=== PATIENT | female | born 1985 | race Caucasian/White ===

== ENCOUNTER 2019-12-22 16:56 | Emergency (ER) | payer BC, OTHER ==
[~2019-12-22] VITALS: Ht 170.1 cm; Wt 166.4 kg
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
[2019-12-22 17:17] LABS: HEMATOCRIT 37 % (35-52); HEMOGLOBIN 11.5 G/DL (11.5-16.0); MEAN CORPUSCULAR HEMOGLOBIN 23 PG (25-34); MEAN CORPUSCULAR HGB CONC 31 G/DL (32-36); MEAN CORPUSCULAR VOLUME 75 FL (80-99); MEAN PLATELET VOLUME 9.3 FL (7.4-10.4); PLATELET COUNT 344 10^3/uL (130-400); RED CELL DISTRIBUTION WIDTH 17.2 % (10.0-14.5); WHITE BLOOD COUNT 8.5 10^3/uL (4.3-11.0)
[2019-12-22 17:18] LABS: BASOPHILS % (AUTO) 0 % (0-10); EOSINOPHILS # (AUTO) 0.1 10^3/uL (0.0-0.3); EOSINOPHILS % (AUTO) 1 % (0-10); LYMPHOCYTES # (AUTO) 2.5 X 10^3 (1.0-4.0); LYMPHOCYTES % (AUTO) 29 % (12-44); MONOCYTES # (AUTO) 0.5 X 10^3 (0.0-1.0); MONOCYTES % (AUTO) 5 % (0-12); NEUTROPHILS # (AUTO) 5.4 X 10^3 (1.8-7.8); NEUTROPHILS % (AUTO) 64 % (42-75)
--- NOTE | 2019-12-22 17:28 | Diagnostic Imaging Report ---
INDICATION: Chest pain and dizziness. FINDINGS: Single view of the chest shows normal heart size and vascularity. The lungs are clear. There is no effusion or pneumothorax. There is no bony abnormality. IMPRESSION: Normal chest. Dictated by: Dictated on workstation # [id number]
[2019-12-22 17:33] LABS: BILIRUBIN,URINE NEGATIVE (NEGATIVE); CLARITY,URINE CLEAR; COLOR,URINE PALE YELLOW; GLUCOSE, URINE (UA) 1+ (NEGATIVE); KETONES,URINE NEGATIVE (NEGATIVE); LEUKOCYTE ESTERASE ,URINE NEGATIVE (NEGATIVE); NITRITE,URINE NEGATIVE (NEGATIVE); PH,URINE 7.5 (5-9); PROTEIN,URINE NEGATIVE (NEGATIVE)
[2019-12-22 17:34] LABS: BACTERIA,URINE FEW /HPF; WBC,URINE 0-2 /HPF
[2019-12-22 17:38] LABS: AMPHETAMINE SCREEN, URINE NEGATIVE (NEGATIVE); BARBITURATE SCREEN URINE NEGATIVE (NEGATIVE); BENZODIAZEPINES SCREEN URINE NEGATIVE (NEGATIVE); CANNABINOID SCREEN, URINE NEGATIVE (NEGATIVE); COCAINE SCREEN URINE NEGATIVE (NEGATIVE); METHADONE STAT NEGATIVE (NEGATIVE); METHAMPHETAMINE SCREEN URINE S NEGATIVE (NEGATIVE); OPIATE SCREEN URINE NEGATIVE (NEGATIVE); OXYCODONE STAT NEGATIVE (NEGATIVE); PROPOXYPHENE STAT NEGATIVE (NEGATIVE); TRICYCLIC ANTIDEPRESSANTS SCRE NEGATIVE (NEGATIVE)
[2019-12-22] MEDS ORDERED: Claritin (17:46)
[2019-12-22] MEDS ORDERED: PRAM0.257 (17:46)
[2019-12-22] MEDS ORDERED: Probiotic (17:46)
[2019-12-22] MEDS ORDERED: TOPI50TA13 (17:46)
[2019-12-22] MEDS ORDERED: ESCI20TA45 (17:46)
[2019-12-22] MEDS ORDERED: Cinnamon (17:46)
[2019-12-22] MEDS ORDERED: OMEP20CA18 (17:46)
[2019-12-22] MEDS ORDERED: BUPROPION (17:46)
[2019-12-22] MEDS ORDERED: ROPI2TAB6 (17:46)
[2019-12-22 17:53] LABS: ALANINE AMINOTRANSFERASE 15 U/L (0-55); ALKALINE PHOSPHATASE 97 U/L (40-136); BILIRUBIN,TOTAL 0.2 MG/DL (0.1-1.0); BUN/CREATININE RATIO 19; CALCIUM 8.9 MG/DL (8.5-10.1); CARBON DIOXIDE 17 MMOL/L (21-32); CHLORIDE 101 MMOL/L (98-107); CREATININE SERUM 0.67 MG/DL (0.60-1.30); GFR ESTIMATED > 60; GLUCOSE 203 MG/DL (70-105); POTASSIUM 4.1 MMOL/L (3.6-5.0); SODIUM 136 MMOL/L (135-145)
[2019-12-22 17:54] LABS: ALBUMIN 3.5 GM/DL (3.2-4.5); TOTAL PROTEIN 6.8 GM/DL (6.4-8.2)
[2019-12-22 18:20] LABS: FIBRIN DEGRADATION PRODUCTS 0.29 UG/ML (0.00-0.49); INR 0.9 (0.8-1.4); PROTHROMBIN TIME PATIENT 12.5 SEC (12.2-14.7)
[2019-12-22 18:27] VITALS: BP 129/79
--- OUTSIDE RECORDS SUMMARY | 2019-12-22 22:12 | XMS REPORT | Continuity of Care Document ---
Author Organization Unknown Address Unknown Phone Unavailable Allergies There is no data. Medications There is no data. Problems There is no data. Procedures There is no data. Results Test Result Range CULTURE, URINE - 11/09/19 15:49 CULTURE, URINE, ROUTINE SEE NOTE NRG Encounters ACCT No. Visit Date/Time Discharge Status Pt. Type Provider Facility Loc./Unit Complaint [id number] 11/28/2019 11:10:00 11/28/2019 23:59: 59 [facility] Outpatient Ata Cook [facility] IN [facility] [id number] 11/09/2019 14:50:00 Document Registration
== END 2019-12-22 18:27 | disposition home or self-care (01) ==
LOC: ER FS 16:59
DX: F41.9 Anxiety disorder, unspecified (principal); R07.89 Other chest pain; Z88.1 Allergy status to other antibiotic agents; Z88.8 Allergy status to other drugs, medicaments and biological substances
CPT/HCPCS: 36415; 71045; 80053; 80306; 81000; 83880; 84484; 85025; 85379; 85610; 93005

== ENCOUNTER 2020-03-16 16:20 | Emergency (ER) | payer BC ==
[~2020-03-16] VITALS: Ht 170.1 cm; Wt 168.6 kg
[~2020-03-16 16:20] MED LIST: BUPROPION; Cinnamon; Claritin; ESCI20TA45; OMEP20CA18; PRAM0.257; Probiotic; ROPI2TAB6; TOPI50TA13
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
[2020-03-16 16:53] LABS: HEMATOCRIT 39 % (35-52); HEMOGLOBIN 11.8 G/DL (11.5-16.0); MEAN CORPUSCULAR HEMOGLOBIN 23 PG (25-34); MEAN CORPUSCULAR VOLUME 76 FL (80-99); WHITE BLOOD COUNT 10.7 10^3/uL (4.3-11.0)
[2020-03-16 16:54] LABS: BASOPHILS % (AUTO) 0 % (0-10); EOSINOPHILS # (AUTO) 0.1 10^3/uL (0.0-0.3); EOSINOPHILS % (AUTO) 1 % (0-10); LYMPHOCYTES # (AUTO) 2.7 X 10^3 (1.0-4.0); LYMPHOCYTES % (AUTO) 26 % (12-44); MEAN CORPUSCULAR HGB CONC 31 G/DL (32-36); MEAN PLATELET VOLUME 9.5 FL (7.4-10.4); MONOCYTES # (AUTO) 0.8 X 10^3 (0.0-1.0); MONOCYTES % (AUTO) 7 % (0-12); NEUTROPHILS % (AUTO) 66 % (42-75); PLATELET COUNT 383 10^3/uL (130-400)
[2020-03-16] MEDS ORDERED: meTOprolol 5 MG/5 ML (LOPRESSOR) VIAL IV STA (17:00)
--- NOTE | 2020-03-16 17:00 | NUR ---
Call to patient's mother, Holli, that transported patient to ED in [facility]. Mother asked by staff to convey the reason of patient to ED as she is not offering any history and wanting to be very vague. Pt states in soft slow hesitance with many pauses, "I am not feeling well." With more questions to prod pt to be more specific she reports, "My blood sugars are not being controlled with all the new meds." Mother states, "She is having reactions to all new meds." Reactions were defined as diarrhea and stomach cramping. Pt does not c/o of any pain, SOA, CP, but kepts stating "Just need to rest." The mother states she stays out back in a cabin on their property and currently had her son today which is shared in joint custody while going thru a divorce. The mother states she checked her BP at lunch time 188/85 with pulse >100. A recheck was 195/93 with pulse >100. Pt with known history of anxiety and depression.
[2020-03-16 17:13] LABS: PROTHROMBIN TIME PATIENT 13.2 SEC (12.2-14.7)
[2020-03-16 17:17] LABS: BILIRUBIN,URINE NEGATIVE (NEGATIVE); CLARITY,URINE CLEAR; COLOR,URINE YELLOW; GLUCOSE, URINE (UA) NEGATIVE (NEGATIVE); KETONES,URINE NEGATIVE (NEGATIVE); LEUKOCYTE ESTERASE ,URINE NEGATIVE (NEGATIVE); NITRITE,URINE NEGATIVE (NEGATIVE); PH,URINE 6.5 (5-9); PROTEIN,URINE NEGATIVE (NEGATIVE)
[2020-03-16 17:18] LABS: BACTERIA,URINE FEW /HPF
[2020-03-16 17:18] LABS: ALANINE AMINOTRANSFERASE 12 U/L (0-55); ALKALINE PHOSPHATASE 101 U/L (40-136); BILIRUBIN,TOTAL 0.2 MG/DL (0.1-1.0); BUN/CREATININE RATIO 12; CARBON DIOXIDE 19 MMOL/L (21-32); CHLORIDE 107 MMOL/L (98-107); CREATININE SERUM 0.89 MG/DL (0.60-1.30); GFR ESTIMATED > 60; GLUCOSE 170 MG/DL (70-105); POTASSIUM 3.9 MMOL/L (3.6-5.0); SODIUM 140 MMOL/L (135-145)
[2020-03-16 17:19] LABS: ALBUMIN 3.6 GM/DL (3.2-4.5); LIPASE 43 U/L (8-78)
--- NOTE | 2020-03-16 17:23 | Diagnostic Imaging Report ---
EXAMINATION: Chest radiograph, portable AP view. DATE: 03/16/2020 5:18 PM hours. INDICATION: 34-year-old female, chest pressure. Palpitations. COMPARISON: December 22, 2019. FINDINGS: Stable overall appearance of the cardiomediastinal silhouette. There is no identified pneumothorax. There is no large pleural effusion. There is no identified focal airspace consolidation. IMPRESSION: No identified acute cardiopulmonary abnormality. Dictated by: Dictated on workstation # [id number]
--- NOTE | 2020-03-16 17:24 | Diagnostic Imaging Report ---
EXAMINATION: CT brain without contrast 03/16/2020. TECHNIQUE: Multiple contiguous axial images were obtained through the brain without the use of intravenous contrast. Auto Exposure Controls were utilized during the CT exam to meet ALARA standards for radiation dose reduction. INDICATION: Confusion. FINDINGS: Multiple axial images of the brain without contrast. There is no evidence for acute hemorrhage or infarct. There is no mass, mass effect, midline shift or hydrocephalus. The paranasal sinuses and mastoid air cells demonstrate no acute abnormality. IMPRESSION: No acute intracranial process. Dictated by: Dictated on workstation # [id number]
[2020-03-16 17:27] LABS: AMPHETAMINE SCREEN, URINE NEGATIVE (NEGATIVE); BARBITURATE SCREEN URINE NEGATIVE (NEGATIVE); BENZODIAZEPINES SCREEN URINE NEGATIVE (NEGATIVE); CANNABINOID SCREEN, URINE NEGATIVE (NEGATIVE); COCAINE SCREEN URINE NEGATIVE (NEGATIVE); METHADONE STAT NEGATIVE (NEGATIVE); METHAMPHETAMINE SCREEN URINE S NEGATIVE (NEGATIVE); OPIATE SCREEN URINE NEGATIVE (NEGATIVE); OXYCODONE STAT NEGATIVE (NEGATIVE); PROPOXYPHENE STAT NEGATIVE (NEGATIVE); TRICYCLIC ANTIDEPRESSANTS SCRE NEGATIVE (NEGATIVE)
[2020-03-16] MEDS ORDERED: NS IV 1000 ML 1,000 ML IV STA (17:45)
--- NOTE | 2020-03-16 18:00 | NUR ---
Dr Gaxiola to room to give patient results. Explaining most all of work up is totally WNL with her continued need to allow her PCP to manage the blood sugars (value 170 on lab) and this will also stressed that her B/P and pulse be addressed by them also. Urine is alittle concentrated so a bag of NS will be given and 1 single dose of Lopressor 5 mg IV. Pt is in agreeance of plan for discharge.
--- NOTE | 2020-03-16 18:10 | NUR ---
Call to mother, Holli, to give update of results per pt permission. Pt is going to receive some IV fluids and got a single dose Lopressor to help with pulse rate >100 and her BP. Pt's pulse came down to 82-88. Pt will follow up with PCP for management plan of diabetes and B/P. Mother has traded out with the father as her transportation.
[2020-03-16 18:45] VITALS: BP 181/94
--- NOTE | 2020-03-16 18:45 | NUR ---
Pt discharged at this time from ER ambulatory and steady gait. Pt's father is present for hazmat tanker driver. Pt verbalizes understanding of discharge instructions.
== END 2020-03-16 18:45 | disposition home or self-care (01) ==
LOC: EDUNIT# 16:28 → ER FS 16:29
DX: I10 Essential (primary) hypertension (principal); E11.9 Type 2 diabetes mellitus without complications; E86.0 Dehydration; E66.01 Morbid (severe) obesity due to excess calories; Z68.43 Body mass index [BMI] 50.0-59.9, adult; Z88.1 Allergy status to other antibiotic agents; Z88.8 Allergy status to other drugs, medicaments and biological substances
CPT/HCPCS: 36415; 70450; 71045; 80053; 80306; 81000; 82962; 83690; 83735; 83880; 84484; 85025; 85610; 85730; 93041

== ENCOUNTER 2020-09-06 17:54 | Emergency (ER) | payer BC ==
[~2020-09-06] VITALS: Ht 170 cm; Wt 170.0 kg
[~2020-09-06 17:54] MED LIST changes: +ESCI20TA39; -ESCI20TA45
[2020-09-06] MEDS ORDERED: fentaNYL INJECTION 100 MCG/2 ML AMP IVP STA (18:06)
[2020-09-06] MEDS ORDERED: NS IV 1000 ML 1,000 ML IV STA (18:06)
[2020-09-06] MEDS ORDERED: KETOROLAC 30 MG/ML VIAL IVP STA (18:06)
--- NOTE | 2020-09-06 18:14 | ED GI ---
General Chief Complaint: Abdominal/GI Problems Stated Complaint: ABD PAIN Nursing Triage Note: PT REPORTS SUDDEN ONSET OF LOWER ABDOMINAL PAIN. SHE HAS A HX OF LARGE (14 LB) CYSTS BUT HAS HAD A HYSTERECTOMY AND ONLY HAS ONE OVARY. Sepsis Screen: No Definite Risk Source of Information: Patient History of Present Illness Date Seen by Provider: Sep 06, 2020 Time Seen by Provider: 17:54 Initial Comments 35-year-old female presents with complaints of sudden onset right-sided lower abdominal pain. She states that she was sitting with her 35 pound toddler sitting on her left hip. As a toddler crawled across her abdomen that getting around she had sudden onset of lower abdominal right-sided pain. She states that she also needed to use the restroom when this happened. She did go and have a bowel movement and urinated and that is when the pain got worse. She denies seeing any blood in her urine or stool. She had to wait almost an hour for her family to arrive to watch her toddler while and bring her to the ER. She does have an extensive surgery history on her abdomen with prior hysterectomy and a 14 pound ovarian cyst. She states she had hemorrhage after surgery and complications. All other surgery was done [facility]. She reports this was done in May 2019 and she thinks that she had Covid at that time and it caused her to have coughing and bleeding. She denies any history of kidney stones. She had appendectomy and cholecystectomy already as well. Allergies and Home Medications Allergies Coded Allergies: levofloxacin (Unverified Allergy, Unknown, 12/22/19) haloperidol (Unverified Adverse Reaction, Unknown, 12/22/19) Home Medications Hydrocodone/Acetaminophen 1 Each Tablet, 1 TAB PO Q6H PRN for PAIN-SEVERE (8-10) Prescribed by: DOV DOE on 09/06/202020 Naproxen Sodium 550 Mg Tablet, 550 MG PO BID PRN for pelvic pain Prescribed by: DOV CORONELRT on 09/06/202020 Patient Home Medication List Home Medication List Reviewed: Yes Review of Systems Review of Systems Constitutional: No chills, No fever EENTM: No Symptoms Reported Respiratory: No Symptoms Reported Cardiovascular: No Symptoms Reported Gastrointestinal: See HPI Genitourinary: See HPI, Pain Musculoskeletal: no symptoms reported Skin: no symptoms reported Psychiatric/Neurological: Anxiety Endocrine: No Symptoms Reported Hematologic/Lymphatic: No Symptoms Reported Past Txtwnyo-Thpqey-Pyteab Hx Past Med/Social Hx: Reviewed Nursing Past Med/Soc Hx Patient Social History Alcohol Use: Denies Use Smoking Status: Never a Smoker 2nd Hand Smoke Exposure: No Recent Infectious Disease Expo: No Recent Hopitalizations: No Immunizations Up To Date Tetanus Booster (TDap): Unknown Seasonal Allergies Seasonal Allergies: No Past Medical History Surgeries: Yes (14 LB Ovarian Cyst REMOVED, a couple back procedures) Adenoidectomy, Section, Gallbladder, Hysterectomy, Tonsillectomy Respiratory: Yes (ANNA with CPAP) Sleep Apnea Currently Using CPAP: Yes Cardiac: No Neurological: Yes (RLS) Headaches /Migraines Genitourinary: No Gastrointestinal: Yes Gastroesophageal Reflux Musculoskeletal: Yes (reports ankylosing spondylitis) Scoliosis, Chronic Back Pain Endocrine: Yes ("pre-diabetes", Morbid obesity) HEENT: No Cancer: No Psychosocial: Yes (December 2018-Overdose SI-pysch inpt) Anxiety, Suicide Attempts, Depression Integumentary: No Blood Disorders: No Physical Exam Vital Signs Vital Signs - First Documented 09/06/20 18:02 Temp 37.0 Pulse 132 Resp 18 B/P (MAP) 114/ Pulse Ox 98 O2 Delivery Room Air Capillary Refill : Less Than 3 Seconds Height/Weight/BMI Height: '" Weight: lbs. oz. kg; 58.00 BMI Method: General Appearance: severe distress (moaning and rocking on the bed), obese (morbidly obese) HEENT: PERRL/EOMI Neck: non-tender, full range of motion, supple, normal inspection Respiratory: chest non-tender, lungs clear, normal breath sounds Cardiovascular: normal peripheral pulses, regular rate, rhythm Gastrointestinal: soft, no pulsatile mass, abnormal bowel sounds (decreased); No rebound; tenderness (diffuse but worse on right side and suprapubic) Extremities: normal range of motion, normal capillary refill Neurologic/Psychiatric: alert, oriented x 3 Skin: normal color, warm/dry Progress/Results/Core Measures Results/Orders Lab Results Laboratory Tests Test 09/06/20 18:18 09/06/20 19:10 Range/Units White Blood Count 11.1 H 4.3-11.0 10^3/uL Red Blood Count 4.97 4.35-5.85 10^6/uL Hemoglobin 12.2 11.5-16.0 G/DL Hematocrit 38 35-52 % Mean Corpuscular Volume 77 L 80-99 FL Mean Corpuscular Hemoglobin 25 25-34 PG Mean Corpuscular Hemoglobin Concent 32 32-36 G/DL Red Cell Distribution Width 15.3 H 10.0-14.5 % Platelet Count 390 130-400 10^3/uL Mean Platelet Volume 9.4 7.4-10.4 FL Immature Granulocyte % (Auto) 0 % Neutrophils (%) (Auto) 68 42-75 % Lymphocytes (%) (Auto) 24 12-44 % Monocytes (%) (Auto) 6 0-12 % Eosinophils (%) (Auto) 1 0-10 % Basophils (%) (Auto) 0 0-10 % Neutrophils # (Auto) 7.6 1.8-7.8 X 10^3 Lymphocytes # (Auto) 2.7 1.0-4.0 X 10^3 Monocytes # (Auto) 0.6 0.0-1.0 X 10^3 Eosinophils # (Auto) 0.1 0.0-0.3 10^3/uL Basophils # (Auto) 0.0 0.0-0.1 10^3/uL Immature Granulocyte # (Auto) 0.0 0.0-0.1 10^3/uL Sodium Level 139 135-145 MMOL/L Potassium Level 3.9 3.6-5.0 MMOL/L Chloride Level 107 98-107 MMOL/L Carbon Dioxide Level 18 L 21-32 MMOL/L Anion Gap 14 5-14 MMOL/L Blood Urea Nitrogen 17 7-18 MG/DL Creatinine 0.91 0.60-1.30 MG/DL Estimat Glomerular Filtration Rate > 60 BUN/Creatinine Ratio 19 Glucose Level 198 H 70-105 MG/DL Calcium Level 9.0 8.5-10.1 MG/DL Corrected Calcium 9.1 8.5-10.1 MG/DL Total Bilirubin 0.2 0.1-1.0 MG/DL Aspartate Amino Transf (AST/SGOT) 13 5-34 U/L Alanine Aminotransferase (ALT/SGPT) 12 0-55 U/L Alkaline Phosphatase 108 40-136 U/L Total Protein 7.2 6.4-8.2 GM/DL Albumin 3.9 3.2-4.5 GM/DL Lipase 78 8-78 U/L Urine Color YELLOW Urine Clarity SLT CLOUDY Urine pH 6.0 5-9 Urine Specific Kerrick >=1.030 1.016-1.022 Urine Protein NEGATIVE NEGATIVE Urine Glucose (UA) NEGATIVE NEGATIVE Urine Ketones TRACE H NEGATIVE Urine Nitrite NEGATIVE NEGATIVE Urine Bilirubin NEGATIVE NEGATIVE Urine Urobilinogen 0.2 < = 1.0 MG/DL Urine Leukocyte Esterase NEGATIVE NEGATIVE Urine RBC (Auto) NEGATIVE NEGATIVE Urine RBC RARE /HPF Urine WBC RARE /HPF Urine Squamous Epithelial Cells 5-10 /HPF Urine Crystals NONE /LPF Urine Bacteria MODERATE H /HPF Urine Casts NONE /LPF Urine Mucus SMALL H /LPF Urine Culture Indicated NO My Orders Orders - DOV DOE MD Comprehensive Metabolic Panel (09/06/20 18:06) Lipase (09/06/20 18:06) Ua Culture If Indicated (09/06/20 18:06) Ed Iv/Invasive Line Start (09/06/20 18:06) Cbc With Automated Diff (09/06/20 18:06) Ct Abdomen/Pelvis Wo (09/06/20 18:06) Ns Iv 1000 Ml (Sodium Chloride 0.9%) (09/06/20 18:06) Ketorolac Injection (Toradol Injection) (09/06/20 18:06) Fentanyl Injection (Sublimaze Injection (09/06/20 18:06) Hydrocodone/Apap 5/325 Tablet (Lortab 5 (09/06/20 20:13) Rx-Hydrocodone/Apap 5-325 Mg (Rx-Vicodin (09/06/20 20:15) Vital Signs/I&O 09/06/20 09/06/20 18:02 20:37 Temp 37.0 Pulse 132 99 Resp 18 18 B/P (MAP) 114/ 158/80 Pulse Ox 98 97 O2 Delivery Room Air Room Air Progress Progress Note #1: Progress Note check labs and urine as well as CT scan of abdomen/pelvis without contrast to check for possible kidney stone. Differential would include kidney stone, ovarian cyst, colitis, diverticulitis, abdominal wall contusion, UTI Try IVF for hydration, keep NPO in case surgery needs to be involved. Toradol and Fentanyl for pain. Pt declines nausea medicine unless she has to have it. Progress Note #2: Progress Note On recheck the patient's blood count was slightly elevated at 11.1. Otherwise her electrolytes and chemistry panel were stable. Her CT scan showed a cystic mass in the right ovarian area with hemorrhagic cyst. This measured 4.7 x 6.2 cm. There is no sign of kidney stones or obstruction. Patient's pain was impro shawna with medication down to 2 out of 10. She was feeling better and advised of the results. Will start on oral medication and have her try to get back with a process checker out of [facility]. Counseled if symptoms worsen or were not improving she may need an ultrasound. Ultimately she would likely need surgical intervention for the hemorrhagic ovarian cyst. If her pain suddenly got worse then an ultrasound to rule out ovarian torsion would be the next step. Diagnostic Imaging Diagonstic Imaging: CT Plain Films/CT/US/NM/MRI: abdomen, pelvis Comments NAME: [facility]AS [facility] REC#: [id number] PT STATUS: REG ER : 1985 PHYSICIAN: DOV DOE MD ADMIT DATE: 09/06/20/ER FS Signed Date of Exam:09/06/20 CT ABDOMEN/PELVIS WO PROCEDURE: CT abdomen and pelvis without contrast. TECHNIQUE: Multiple contiguous axial images were obtained through the abdomen and pelvis without the use of intravenous contrast. Auto Exposure Controls were utilized during the CT exam to meet ALARA standards for radiation dose reduction. INDICATION: Right-sided abdominal pain, dysuria Lung bases are clear. There is fatty infiltration of the liver. The gallbladder is surgically absent. Pancreas appears normal. Spleen is not enlarged. Common duct is not dilated. Kidneys and adrenals appear normal. Small bowel is not dilated. There is diverticulosis of the colon but no evidence of diverticulitis. Urinary bladder is unremarkable. There is a 4.2 x 6.7 cm right adnexal mass. Uterus is surgically absent. Left ovary is not seen. IMPRESSION: Large right adnexal mass could be a hemorrhagic cyst. There is no intraperitoneal free air or free fluid. There is hepatic steatosis present. There is uncomplicated diverticulosis of the colon. Dictated by: Dictated on workstation # [id number] Dict: 09/06/201856 Trans: 09/06/201920 JOJO [id number] Interpreted by: JOSE ANTONIO FERNANDEZ MD Electronically signed by: JOSE ANTONIO FERNANDEZ MD 09/06/201920 Departure Impression Primary Impression: Hemorrhagic cyst of right ovary Additional Impression: Acute pelvic pain, female Disposition: 01 HOME, SELF-CARE Condition: Improved Departure-Patient Inst. Decision time for Depature: 20:15 Referrals: RM HIGGINS APRN (PCP/Family) Primary Care Physician Patient Instructions: Ovarian Cyst ED, Pelvic Pain (DC) Add. Discharge Instructions: Try the pain medicine to help control your symptoms. Check with your gynecology doctor from [facility] to see about getting in for the hemorrhagic cyst on your right ovary. It is measuring 4.7 cm x 6.2 cm. if your pain suddenly worsens again return or be seen immediately for ultrasound to help check for ovarian torsion. Consider a laxative while taking narcotic pain medicine to help prevent constipation and straining. stay well hydrated and drink plenty of fluids All discharge instructions reviewed with patient and/or family. Voiced understanding. Scripts Naproxen Sodium (Naproxen Sodium) 550 Mg Tablet 550 MG PO BID PRN for pelvic pain for 10 Days, #20 TAB 0 Refills Prov: DOV DOE MD 09/06/20 Hydrocodone/Acetaminophen (Hydrocodone-Acetamin 5-325 mg) 1 Each Tablet 1 TAB PO Q6H PRN for PAIN-SEVERE (8-10) for 5 Days, #20 TAB 0 Refills Prov: DOV DOE MD 09/06/20 DOV DOE MD Sep 06, 2020 18:14
[2020-09-06 18:25] LABS: WHITE BLOOD COUNT 11.1 10^3/uL (4.3-11.0)
[2020-09-06 18:26] LABS: BASOPHILS % (AUTO) 0 % (0-10); EOSINOPHILS % (AUTO) 1 % (0-10); HEMATOCRIT 38 % (35-52); HEMOGLOBIN 12.2 G/DL (11.5-16.0); LYMPHOCYTES % (AUTO) 24 % (12-44); MEAN CORPUSCULAR HEMOGLOBIN 25 PG (25-34); MEAN CORPUSCULAR HGB CONC 32 G/DL (32-36); MEAN CORPUSCULAR VOLUME 77 FL (80-99); MEAN PLATELET VOLUME 9.4 FL (7.4-10.4); MONOCYTES % (AUTO) 6 % (0-12); NEUTROPHILS # (AUTO) 7.6 X 10^3 (1.8-7.8); NEUTROPHILS % (AUTO) 68 % (42-75); PLATELET COUNT 390 10^3/uL (130-400)
[2020-09-06 18:27] LABS: EOSINOPHILS # (AUTO) 0.1 10^3/uL (0.0-0.3); LYMPHOCYTES # (AUTO) 2.7 X 10^3 (1.0-4.0); MONOCYTES # (AUTO) 0.6 X 10^3 (0.0-1.0)
[2020-09-06 18:48] LABS: BUN/CREATININE RATIO 19; CARBON DIOXIDE 18 MMOL/L (21-32); CHLORIDE 107 MMOL/L (98-107); CREATININE SERUM 0.91 MG/DL (0.60-1.30); GFR ESTIMATED > 60; GLUCOSE 198 MG/DL (70-105); POTASSIUM 3.9 MMOL/L (3.6-5.0); SODIUM 139 MMOL/L (135-145)
[2020-09-06 18:49] LABS: ALANINE AMINOTRANSFERASE 12 U/L (0-55); ALBUMIN 3.9 GM/DL (3.2-4.5); ALKALINE PHOSPHATASE 108 U/L (40-136); BILIRUBIN,TOTAL 0.2 MG/DL (0.1-1.0); LIPASE 78 U/L (8-78); TOTAL PROTEIN 7.2 GM/DL (6.4-8.2)
--- NOTE | 2020-09-06 19:03 | Diagnostic Imaging Report ---
PROCEDURE: CT abdomen and pelvis without contrast. TECHNIQUE: Multiple contiguous axial images were obtained through the abdomen and pelvis without the use of intravenous contrast. Auto Exposure Controls were utilized during the CT exam to meet ALARA standards for radiation dose reduction. INDICATION: Right-sided abdominal pain, dysuria Lung bases are clear. There is fatty infiltration of the liver. The gallbladder is surgically absent. Pancreas appears normal. Spleen is not enlarged. Common duct is not dilated. Kidneys and adrenals appear normal. Small bowel is not dilated. There is diverticulosis of the colon but no evidence of diverticulitis. Urinary bladder is unremarkable. There is a 4.2 x 6.7 cm right adnexal mass. Uterus is surgically absent. Left ovary is not seen. IMPRESSION: Large right adnexal mass could be a hemorrhagic cyst. There is no intraperitoneal free air or free fluid. There is hepatic steatosis present. There is uncomplicated diverticulosis of the colon. Dictated by: Dictated on workstation # [id number]
[2020-09-06 19:28] LABS: BILIRUBIN,URINE NEGATIVE (NEGATIVE); CLARITY,URINE SLT CLOUDY; COLOR,URINE YELLOW; GLUCOSE, URINE (UA) NEGATIVE (NEGATIVE); KETONES,URINE TRACE (NEGATIVE); LEUKOCYTE ESTERASE ,URINE NEGATIVE (NEGATIVE); NITRITE,URINE NEGATIVE (NEGATIVE); PROTEIN,URINE NEGATIVE (NEGATIVE)
[2020-09-06 19:29] LABS: BACTERIA,URINE MODERATE /HPF; RBC,URINE RARE /HPF; WBC,URINE RARE /HPF
[2020-09-06] MEDS ORDERED: HYDROcodone/APAP 5 MG/325 MG (LORTAB) TAB PO STA (20:13)
[2020-09-06] MEDS ORDERED: RX-HYDROCODONE/APAP 5/325 MG #4 TAB PK PO PRN (20:15)
[2020-09-06] MEDS ORDERED: ACHD5005 PO (20:21)
[2020-09-06] MEDS ORDERED: NAPR-1067 PO (20:21)
[2020-09-06] MEDS ORDERED: NAPR-1071 PO (20:21)
[2020-09-06 20:37] VITALS: BP 158/80
== END 2020-09-06 20:37 | disposition home or self-care (01) ==
LOC: EDUNIT# 17:54 → ER FS 17:55
DX: N83.201 Unspecified ovarian cyst, right side (principal); E66.01 Morbid (severe) obesity due to excess calories; Z88.1 Allergy status to other antibiotic agents; Z88.8 Allergy status to other drugs, medicaments and biological substances
CPT/HCPCS: 36415; 74176; 80053; 81000; 83690; 85025

== ENCOUNTER → 2020-12-09 | Outpatient (CLI) | payer BC ==
[~2020-12-09] MED LIST changes: +ACHD5005 PO; +NAPR-1067 PO; +NAPR-1071 PO
[2020-12-09 11:37] LABS: HEMATOCRIT 38 % (35-52); HEMOGLOBIN 12.3 G/DL (11.5-16.0); MEAN CORPUSCULAR HEMOGLOBIN 25 PG (25-34); MEAN CORPUSCULAR HGB CONC 32 G/DL (32-36); MEAN CORPUSCULAR VOLUME 79 FL (80-99); MEAN PLATELET VOLUME 9.8 FL (7.4-10.4); PLATELET COUNT 430 10^3/uL (130-400); WHITE BLOOD COUNT 11.9 10^3/uL (4.3-11.0)
--- NOTE | 2020-12-09 11:37 | Diagnostic Imaging Report ---
INDICATION: Shortness of breath and cough and weakness. PA and lateral chest obtained at 11:18 a.m. and compared 03/16/2020. FINDINGS: Heart and mediastinal silhouette are normal in appearance. The lungs are clear. There is no pneumothorax or pleural fluid. IMPRESSION: Negative chest. Dictated by: Dictated on workstation # [id number]
[2020-12-09 11:38] LABS: BASOPHILS % (AUTO) 0 % (0-10); EOSINOPHILS # (AUTO) 0.1 10^3/uL (0.0-0.3); EOSINOPHILS % (AUTO) 1 % (0-10); LYMPHOCYTES # (AUTO) 2.7 X 10^3 (1.0-4.0); LYMPHOCYTES % (AUTO) 23 % (12-44); MONOCYTES # (AUTO) 0.8 X 10^3 (0.0-1.0); MONOCYTES % (AUTO) 7 % (0-12); NEUTROPHILS # (AUTO) 8.3 X 10^3 (1.8-7.8); NEUTROPHILS % (AUTO) 70 % (42-75)
[2020-12-09 12:50] LABS: BILIRUBIN,TOTAL 0.2 MG/DL (0.1-1.0); BUN/CREATININE RATIO 24; CALCIUM 9.1 MG/DL (8.5-10.1); CARBON DIOXIDE 15 MMOL/L (21-32); CHLORIDE 107 MMOL/L (98-107); CREATININE SERUM 0.72 MG/DL (0.60-1.30); GFR ESTIMATED > 60; GLUCOSE 190 MG/DL (70-105); POTASSIUM 4.2 MMOL/L (3.6-5.0); SODIUM 137 MMOL/L (135-145)
[2020-12-09 12:51] LABS: ALANINE AMINOTRANSFERASE 17 U/L (0-55); ALBUMIN 3.7 GM/DL (3.2-4.5); ALKALINE PHOSPHATASE 97 U/L (40-136); TOTAL PROTEIN 7.2 GM/DL (6.4-8.2)
== END ==
LOC: LAB FS 11:06
PROVIDERS: ATTEND Nurse Practitioner Family
DX: Z09 Encounter for follow-up examination after completed treatment for conditions other than malignant neoplasm (principal); R05 Cough; Z87.09 Personal history of other diseases of the respiratory system
CPT/HCPCS: 36415; 71046; 80053; 85025

== ENCOUNTER 2021-01-03 11:05 | Emergency (ER) | payer BC ==
[~2021-01-03] VITALS: Ht 170 cm; Wt 159.5 kg
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
[2021-01-03 12:27] LABS: BASOPHILS % (AUTO) 0 % (0-10); EOSINOPHILS # (AUTO) 0.1 10^3/uL (0.0-0.3); EOSINOPHILS % (AUTO) 1 % (0-10); HEMATOCRIT 39 % (35-52); HEMOGLOBIN 11.9 g/dL (11.5-16.0); LYMPHOCYTES # (AUTO) 2.5 10^3/uL (1.0-4.0); LYMPHOCYTES % (AUTO) 25 % (12-44); MEAN CORPUSCULAR HEMOGLOBIN 25 pg (25-34); MEAN CORPUSCULAR HGB CONC 31 g/dL (32-36); MEAN CORPUSCULAR VOLUME 81 fL (80-99); MEAN PLATELET VOLUME 10.3 fL (9.0-12.2); MONOCYTES # (AUTO) 0.8 10^3/uL (0.0-1.0); MONOCYTES % (AUTO) 8 % (0-12); NEUTROPHILS # (AUTO) 6.7 10^3/uL (1.8-7.8); NEUTROPHILS % (AUTO) 66 % (42-75); PLATELET COUNT 377 10^3/uL (130-400); WHITE BLOOD COUNT 10.1 10^3/uL (4.3-11.0)
[2021-01-03 12:31] LABS: ALBUMIN 3.7 GM/DL (3.2-4.5)
[2021-01-03 12:32] LABS: CHLORIDE 109 MMOL/L (98-107); POTASSIUM 4.2 MMOL/L (3.6-5.0); SODIUM 139 MMOL/L (135-145)
[2021-01-03 12:33] LABS: CALCIUM 8.8 MG/DL (8.5-10.1)
[2021-01-03 12:34] LABS: GLUCOSE 197 MG/DL (70-105); TOTAL PROTEIN 7.2 GM/DL (6.4-8.2)
[2021-01-03 12:35] LABS: CARBON DIOXIDE 16 MMOL/L (21-32)
[2021-01-03 12:36] LABS: BILIRUBIN,TOTAL 0.3 MG/DL (0.1-1.0)
[2021-01-03 12:37] LABS: FIBRIN DEGRADATION PRODUCTS <= 0.27 UG/ML (0.00-0.49); INR 0.9 (0.8-1.4); PARTIAL THROMBOPLASTIN TIME 24 SEC (24-35); PROTHROMBIN TIME PATIENT 12.6 SEC (12.2-14.7)
[2021-01-03 12:38] LABS: ALKALINE PHOSPHATASE 97 U/L (40-136); CREATININE SERUM 0.84 MG/DL (0.60-1.30); GFR ESTIMATED > 60
[2021-01-03 12:39] LABS: BUN/CREATININE RATIO 17
[2021-01-03 12:41] LABS: ALANINE AMINOTRANSFERASE 19 U/L (0-55)
--- NOTE | 2021-01-03 13:19 | Diagnostic Imaging Report ---
EXAMINATION: Portable erect AP chest at 1:08 p.m. INDICATION: Shortness of breath. The heart size is within normal limits and stable when compared to 03/16/2020. The lungs remain clear. There is still no sign of failure, pneumonia or pleural effusion. The mediastinum is not widened. The osseous structures are intact. IMPRESSION: There is no evidence for active disease. Dictated by: Dictated on workstation # [id number]
[2021-01-03 14:00] VITALS: BP 140/95
== END 2021-01-03 14:00 | disposition home or self-care (01) ==
LOC: EDUNIT# 11:05 → ER 11:07
DX: R00.0 Tachycardia, unspecified (principal); R06.09 Other forms of dyspnea; E66.01 Morbid (severe) obesity due to excess calories; G47.30 Sleep apnea, unspecified; G89.29 Other chronic pain; M54.9 Dorsalgia, unspecified; Z68.43 Body mass index [BMI] 50.0-59.9, adult; Z79.891 Long term (current) use of opiate analgesic
CPT/HCPCS: 36415; 71045; 80053; 82947; 83735; 83874; 83880; 84484; 85025; 85379; 85610; 85730; 93005; 93041

== ENCOUNTER → 2021-01-11 | Outpatient (CLI) | payer BC ==
[~2021-01-11] MED LIST changes: +RT-ALBUTEROL SULF 2.5 MG/3 ML PRE-MIX VIAL INH ONE
== END ==
LOC: RT 14:30
PROVIDERS: ATTEND Nurse Practitioner Family
DX: Z13.83 Encounter for screening for respiratory disorder NEC (principal)
CPT/HCPCS: 94060; 94726; 94729

== ENCOUNTER → 2021-01-21 | Outpatient (CLI) | payer BC ==
[~2021-01-21] MED LIST changes: -RT-ALBUTEROL SULF 2.5 MG/3 ML PRE-MIX VIAL INH ONE
[2021-01-21 16:12] LABS: FREE T4 (FREE THYROXINE) 0.95 NG/DL (0.70-1.48)
== END ==
LOC: LAB 14:57
PROVIDERS: ATTEND Nurse Practitioner Family
DX: J81.1 Chronic pulmonary edema (principal)
CPT/HCPCS: 36415; 84439; 84443; 84481

== ENCOUNTER → 2021-02-01 | Outpatient (CLI) | payer BC | LOC: CARD 10:30 | PROVIDERS: ATTEND Nurse Practitioner Family | DX: I27.20 Pulmonary hypertension, unspecified (principal) | CPT/HCPCS: 93306 ==

== ENCOUNTER 2022-12-15 17:10 | Emergency (ER) | payer BC, MEDICAID ==
[~2022-12-15] VITALS: Ht 170.2 cm; Wt 153.3 kg
[~2022-12-15 17:10] MED LIST changes: +TOPI-241; -TOPI50TA13
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
[2022-12-15] MEDS ORDERED: KETOROLAC 30 MG/ML VIAL IM ONE (18:00)
[2022-12-15] MEDS ORDERED: KETOROLAC 15 MG/ML VIAL IVP ONE (18:15)
[2022-12-15] MEDS ORDERED: KETOROLAC 15 MG/ML VIAL ONE (18:34)
[2022-12-15 18:47] VITALS: BP 137/86
== END 2022-12-15 18:47 | disposition home or self-care (01) ==
LOC: EDUNIT# 17:10 → ER FS 17:12
DX: S39.012A Strain of muscle, fascia and tendon of lower back, initial encounter (principal); M51.37 Other intervertebral disc degeneration, lumbosacral region; G47.33 Obstructive sleep apnea (adult) (pediatric); E66.01 Morbid (severe) obesity due to excess calories; Z68.43 Body mass index [BMI] 50.0-59.9, adult; Z99.89 Dependence on other enabling machines and devices; X50.1XXA Overexertion from prolonged static or awkward postures, initial encounter
CPT/HCPCS: 72100

== ENCOUNTER 2023-03-18 08:57 | Emergency (ER) | payer MEDICAID ==
[~2023-03-18] VITALS: Ht 170 cm; Wt 150.0 kg
[~2023-03-18 08:57] MED LIST changes: +ROPI2TAB52; -ROPI2TAB6
[2023-03-18 09:03] VITALS: BP 147/101
[2023-03-18] MEDS ORDERED: NITROGLYCERIN 0.4 MG SL TABLETS BTL 25'S SL PRN (09:15)
[2023-03-18] MEDS ORDERED: ASPIRIN 81 MG CHEWABLE TABLET PO ONE (09:15)
[2023-03-18 09:16] LABS: BASOPHILS % (AUTO) 1 % (0-10); EOSINOPHILS # (AUTO) 0.2 10^3/uL (0.0-0.3); EOSINOPHILS % (AUTO) 2 % (0-10); HEMATOCRIT 45 % (35-52); LYMPHOCYTES # (AUTO) 2.7 10^3/uL (1.0-4.0); LYMPHOCYTES % (AUTO) 37 % (12-44); MEAN CORPUSCULAR HEMOGLOBIN 26 pg (25-34); MEAN CORPUSCULAR HGB CONC 31 g/dL (32-36); MEAN CORPUSCULAR VOLUME 84 fL (80-99); MEAN PLATELET VOLUME 9.6 fL (9.0-12.2); MONOCYTES # (AUTO) 0.5 10^3/uL (0.0-1.0); MONOCYTES % (AUTO) 7 % (0-12); NEUTROPHILS % (AUTO) 54 % (42-75); PLATELET COUNT 295 10^3/uL (130-400); WHITE BLOOD COUNT 7.5 10^3/uL (4.3-11.0)
--- NOTE | 2023-03-18 09:19 | ED Chest Pain ---
General Chief Complaint: Chest Pain Stated Complaint: CHEST HEAVINESS/SOA/LEFT HAND NUMBNESS Nursing Triage Note: chest pressure x1 week. seen at walk in care for this last week with f/u with Dr. Shrestha Source: patient History of Present Illness Date Seen by Provider: Mar 18, 2023 Time Seen by Provider: 09:03 Initial Comments PT ARRIVES VIA POV FROM HOME IN [place] C/O CHEST PAIN / HEAVINESS SINCE 2099 LAST NIGHT--PAIN BEGAN WHILE LAYING DOWN PAIN IS CONSTANT RATES PAIN 4-5/10 AT WORST, RATES PAIN 2/10 NOW NO RADIATION OF PAIN NOTHING WORSENS OR IMPROVES PAIN C/O SHORTNESS OF BREATH C/O LEFT HAND FEELING NUMB OFF AND ON C/O INTERMITTENT PALPITATIONS--FEELING LIKE HER HEAR IS BEATING IRREGULAR AND R ACING AT TIMES, BUT NOT NOW C/O NAUSEA, NO VOMITING NO SWEATS NO SWELLING IN LEGS/FEET OR PAIN IN CALVES C/O HEADACHE C/O DIZZINESS, NO SYNCOPE. SHE HAD THIS SAME PAIN A COUPLE OF DAYS LAST WEEK AND WENT TO [facility] AT [place] SHE ALSO HAD A SORE THROAT AT THAT TIME SHE HAD AN EKG DONE, AND STREP AND COVID TESTS DONE. NO RX GIVEN PT STATES SHE REQUESTED A REFERRAL TO [facility], SHE HAS A NEW PT APPOINTMENT WITH DR. BERNARDO ON 04/23 PT IS DIABETIC--TAKES INSULIN + ORAL MEDICATIONS, SHE HAS C.G.M. --BLOOD GLUCOSE 121 THIS AM BEFORE SHE ATE BREAKFAST SHE HAS HTN, HYPERLIPIDEMIA, MORBID OBESITY SHE DENIES ANY PRIOR HISTORY OF HEART PROBLEMS SHE HAS HAD HYSTERECTOMY PCP: [facility] Allergies and Home Medications Allergies Coded Allergies: levofloxacin (Unverified Allergy, Unknown, 12/22/19) metronidazole (Verified Allergy, Unknown, 01/03/21) haloperidol (Unverified Adverse Reaction, Unknown, 12/22/19) Patient Home Medication List Escitalopram Oxalate (Escitalopram Oxalate) 20 Mg Tablet, (Reported) Entered as Reported by: LI BARLOW on 12/22/191745 Hydrocodone/Acetaminophen (Hydrocodone-Acetamin 5-325 mg) 1 Each Tablet, 1 TAB PO Q6H PRN for PAIN-SEVERE (8-10) Prescribed by: DOV DOE on 09/06/202020 Ketorolac Tromethamine (Ketorolac Tromethamine) 10 Mg Tablet, 10 MG PO Q6H Prescribed by: JOHNY JIMENES on 03/18/23 110 Naproxen Sodium (Naproxen Sodium) 550 Mg Tablet, 550 MG PO BID PRN for pelvic pain Prescribed by: DOV DOE on 09/06/202020 Omeprazole (Omeprazole) 20 Mg Capsule., (Reported) Entered as Reported by: LI BARLOW on 12/22/191745 Pramipexole Di-HCl (Pramipexole Dihydrochloride) 0.25 Mg Tablet, (Reported) Entered as Reported by: LI BARLOW on 12/22/191745 Ropinirole HCl (Ropinirole HCl) 2 Mg Tablet, (Reported) Entered as Reported by: LI BARLOW on 12/22/191745 Topiramate (Topiramate) 50 Mg Tablet, (Reported) Entered as Reported by: LI BARLOW on 12/22/191745 [Bupropion] , (Reported) Entered as Reported by: LI BARLOW on 12/22/191745 [Cinnamon] , (Reported) Entered as Reported by: LI BARLOW on 12/22/191745 [Claritin] , (Reported) Entered as Reported by: LI BARLOW on 12/22/191745 [Probiotic] , (Reported) Entered as Reported by: LI BARLOW on 12/22/191745 Review of Systems Review of Systems Constitutional: see HPI, dizziness EENTM: No Symptoms Reported Respiratory: See HPI Cardiovascular: See HPI Gastrointestinal: See HPI Genitourinary: No Symptoms Reported Musculoskeletal: see HPI Skin: no symptoms reported Psychiatric/Neurological: See HPI Endocrine: No Symptoms Reported Hematologic/Lymphatic: No Symptoms Reported Past Jzhrbzl-Oyacob-Trljcm Hx Patient Social History Tobacco Use?: No Use of E-Cig and/or Vaping dev: No Substance use?: No Alcohol Use?: No Pt feels they are or have been: No Immunizations Up To Date Tetanus Booster (TDap): Unknown Seasonal Allergies Seasonal Allergies: No Past Medical History Surgeries: Yes (14 LB Ovarian Cyst REMOVED, a couple back procedures) Adenoidectomy, Section, Gallbladder, Hysterectomy, Tonsillectomy Respiratory: Yes (ANNA with CPAP) Sleep Apnea Currently Using CPAP: Yes Cardiac: No Neurological: Yes (RLS) Headaches /Migraines Genitourinary: No Gastrointestinal: Yes Gastroesophageal Reflux Musculoskeletal: Yes (reports ankylosing spondylitis) Scoliosis, Chronic Back Pain Endocrine: Yes ("pre-diabetes", Morbid obesity) HEENT: No Cancer: No Psychosocial: Yes (December 2018-Overdose SI-pysch inpt) Anxiety, Suicide Attempts, Depression Integumentary: No Blood Disorders: No Physical Exam Vital Signs Vital Signs - First Documented 03/18/23 09:03 Temp 37.0 Pulse 78 Resp 20 B/P (MAP) 147/101 (116) Pulse Ox 98 O2 Delivery Room Air Capillary Refill : Less Than 3 Seconds Height, Weight, BMI Height: '" Weight: lbs. oz. kg; 51.00 BMI Method: General Appearance: No Apparent Distress, WD/WN, Obese HEENT: PERRL/EOMI; No Scleral Icterus (L), No Scleral Icterus (R) Neck: Normal Inspection Respiratory: Normal Breath Sounds, No Accessory Muscle Use, No Respiratory Distress, Other (LEFT UPPER CHEST TENDERNESS--PALPATION REPRODUCES PAIN ) Cardiovascular: Regular Rate, Rhythm, No Edema, No JVD, No Murmur, Normal Peripheral Pulses Gastrointestinal: Normal Bowel Sounds, Non Tender, Soft Extremity: Normal Capillary Refill, Normal Inspection, Normal Range of Motion, Non Tender, No Calf Tenderness, No Pedal Edema Neurologic/Psychiatric: Alert, Oriented x3, No Motor/Sensory Deficits, Normal 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, 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 Norm as Tested Skin: Normal Color, Warm/Dry; No Rash Progress/Results/Core Measures Results/Orders Lab Results Laboratory Tests Test 03/18/23 09:09 Range/Units White Blood Count 7.5 4.3-11.0 10^3/uL Red Blood Count 5.36 H 3.80-5.11 10^6/uL Hemoglobin 14.0 11.5-16.0 g/dL Hematocrit 45 35-52 % Mean Corpuscular Volume 84 80-99 fL Mean Corpuscular Hemoglobin 26 25-34 pg Mean Corpuscular Hemoglobin Concent 31 L 32-36 g/dL Red Cell Distribution Width 14.5 10.0-14.5 % Platelet Count 295 130-400 10^3/uL Mean Platelet Volume 9.6 9.0-12.2 fL Immature Granulocyte % (Auto) 0 % Neutrophils (%) (Auto) 54 42-75 % Lymphocytes (%) (Auto) 37 12-44 % Monocytes (%) (Auto) 7 0-12 % Eosinophils (%) (Auto) 2 0-10 % Basophils (%) (Auto) 1 0-10 % Neutrophils # (Auto) 4.0 1.8-7.8 10^3/uL Lymphocytes # (Auto) 2.7 1.0-4.0 10^3/uL Monocytes # (Auto) 0.5 0.0-1.0 10^3/uL Eosinophils # (Auto) 0.2 0.0-0.3 10^3/uL Basophils # (Auto) 0.0 0.0-0.1 10^3/uL Immature Granulocyte # (Auto) 0.0 0.0-0.1 10^3/uL Prothrombin Time 12.8 12.2-14.7 SEC INR Comment 1.0 0.8-1.4 Activated Partial Thromboplast Time 23 L 24-35 SEC D-Dimer 0.33 0.00-0.49 UG/ML Sodium Level 136 135-145 MMOL/L Potassium Level 4.8 3.6-5.0 MMOL/L Chloride Level 108 H 98-107 MMOL/L Carbon Dioxide Level 17 L 21-32 MMOL/L Anion Gap 11 5-14 MMOL/L Blood Urea Nitrogen 22 H 7-18 MG/DL Creatinine 0.89 0.60-1.30 MG/DL Estimat Glomerular Filtration Rate 86 BUN/Creatinine Ratio 25 Glucose Level 162 H 70-105 MG/DL Calcium Level 9.0 8.5-10.1 MG/DL Corrected Calcium 9.0 8.5-10.1 MG/DL Magnesium Level 2.3 1.6-2.4 MG/DL Total Bilirubin 0.4 0.1-1.0 MG/DL Aspartate Amino Transf (AST/SGOT) 28 5-34 U/L Alanine Aminotransferase (ALT/SGPT) 16 0-55 U/L Alkaline Phosphatase 93 40-136 U/L Total Creatine Kinase 98 29-168 U/L Creatine Kinase MB 1.4 <6.6 NG/ML Myoglobin 30.7 10.0-92.0 NG/ML Troponin I < 0.028 <0.028 NG/ML B-Type Natriuretic Peptide 17.4 <100.0 PG/ML Total Protein 8.0 6.4-8.2 GM/DL Albumin 4.0 3.2-4.5 GM/DL Amylase Level 46 25-125 U/L Lipase 47 8-78 U/L My Orders Orders - JOHNY JIMENES DO Chest 1 View, Ap/Pa Only (03/18/23 09:01) Ekg Tracing (03/18/23 09:01) Nitroglycerin 0.4 Mg Btl 25's (Nitroglyc (03/18/23 09:15) Aspirin Chewable Tablet (Aspirin Chewabl (03/18/23 09:15) Cbc With Automated Diff (03/18/23 09:) Magnesium (03/18/23 09:01) Comprehensive Metabolic Panel (03/18/23 09:) Myoglobin Serum (03/18/23 09:01) Protime With Inr (03/18/23 09:01) Partial Thromboplastin Time (03/18/23 09:01) Creatine Kinase (03/18/23 09:01) Creatine Kinase Mb (03/18/23 09:01) Lipase (03/18/23 09:01) Amylase (03/18/23 09:01) Bnp Caroline (03/18/23 09:01) Fibrin Degradation Products (03/18/23 09:01) Troponin I Caroline (03/18/23 09:01) O2 (03/18/23 09:01) Monitor-Rhythm Ecg Trace Only (03/18/23 09:01) Ed Iv/Invasive Line Start (03/18/23 09:01) Ketorolac Injection (Ketorolac Injection (03/18/23 10:00) Ct Angio Chest W (R/O Pe) (03/18/23 10:13) Iohexol Injection (Omnipaque 350 Mg/Ml 1 (03/18/23 10:30) Ns (Ivpb) 100 Ml (Sodium Chloride 0.9% 1 (03/18/23 10:30) Medications Given in ED Current Medications Medications Dose Ordered Sig/Wily Route Start Time Stop Time Status Last Admin Dose Admin Aspirin 324 mg ONCE ONCE PO 03/18/23 09:15 03/18/23 09:16 DC 03/18/23 09:19 324 MG Iohexol 150 ml ONCE ONCE IV 03/18/23 10:30 03/18/23 10:31 DC 03/18/23 10:31 125 ML Ketorolac Tromethamine 30 mg ONCE ONCE IVP 03/18/23 10:00 03/18/23 10:01 DC 03/18/23 10:47 30 MG Nitroglycerin 0.4 mg UD PRN SL 03/18/23 09:15 03/18/23 09:19 0.4 MG Sodium Chloride 100 ml ONCE ONCE IV 03/18/23 10:30 03/18/23 10:31 DC 03/18/23 10:32 80 ML Vital Signs/I&O 03/18/23 03/18/23 03/18/23 09:03 09:03 10:47 Temp 37.0 36.4 37.0 Pulse 78 80 Resp 20 20 B/P (MAP) 147/101 (116) 147/101 (116) Pulse Ox 98 98 O2 Delivery Room Air 2 Blood Pressure Mean: 116 Progress Progress Note : Progress Note VITALS ON ARRIVAL: TEMP 37.0, HR 78, RR 20, BP 147/101, O2 SAT 98% ON ROOM AIR GIVEN: -ASPIRIN -NTG SL X 1--NO IMPROVEMENT IN PAIN AND CAUSED HEADACHE -TORADOL LABS: -CBC NORMAL -CMP GLU 162, OTHERWISE UNREMARKABLE -AMYLASE/LIPASE NORMAL -MG NORMAL -TROPONIN NEGATIVE -BNP NORMAL -PT/PTT/INR UNREMARKABLE -D-DIMER NEGATIVE EKG IS UNREMARKABLE CXR IS UNREMARKABLE CT CHEST ANGIOGRAM Initial ECG Impression Date: Mar 18, 2023 Initial ECG Impression Time: 09:06 Initial ECG Rate: 80 Initial ECG Rhythm: Normal Sinus Initial ECG Intervals NE 216 QRS 97 QT/QTC 398/434 Initial ECG Impression: 1st Degree AV Block Initial ECG Comparisson: Unchanged Comment INTERPRETED BY ME Diagnostic Imaging Comments CXR---PER RADIOLOGIST REPORT AT 0952 FINDINGS: Lungs/pleura: Lungs are clear. There is no pneumothorax. There is no pleural effusion. Mediastinum: Unremarkable. Pulmonary vasculature: Unremarkable. Heart: Unremarkable. Bones/extrathoracic soft tissue: Unremarkable. IMPRESSION: There is no radiographic evidence of acute cardiopulmonary process. CT CHEST ANGIOGRAM--PER RADIOLOGIST REPORT AT 1103 No prior studies are available for comparison. Evaluation of the pulmonary arterial system is without evidence of thromboembolism. No definite filling defects are seen within central, lobar or segmental branches. The thoracic aorta is normal caliber. There is no dissection. No pericardial or pleural fluid is identified. No pulmonary infiltrates, nodules or masses are detected. Upper abdomen is unremarkable. IMPRESSION: Unremarkable CT angiogram of the chest. There is no evidence of pulmonary embolus a more acute aortic disease. Reviewed: Reviewed by Me Departure Impression Primary Impression: Left-sided chest pain Additional Impression: Left-sided chest wall pain Disposition: HOME, SELF-CARE Condition: Stable Departure-Patient Inst. Decision time for Depature: 11:05 Referrals: [facility] (PCP) Primary Care Physician SHALINI HOOK APRN (Family) Primary Care Physician DALE BERNARDO MD Patient Instructions: Chest Pain, Adult ED, Costochondritis (DC) Add. Discharge Instructions: CONTINUE YOUR REGULAR MEDICATIONS PRESCRIBED KEEP YOUR APPOINTMENT WITH DR. BERNARDO, OR SOONER IF POSSIBLE RETURN TO ER IF SYMPTOMS WORSEN All discharge instructions reviewed with patient and/or family. Voiced understanding. Scripts Ketorolac Tromethamine (Ketorolac Tromethamine) 10 Mg Tablet 10 MG PO Q6H for Pain, #15 TAB Prov: JOHNY JIMENES DO 03/18/23 JOHNY JIMENES DO Mar 18, 2023 09:19
[2023-03-18 09:28] LABS: CHLORIDE 108 MMOL/L (98-107); PROTHROMBIN TIME PATIENT 12.8 SEC (12.2-14.7); SODIUM 136 MMOL/L (135-145)
[2023-03-18 09:29] LABS: AMYLASE 46 U/L (25-125)
[2023-03-18 09:30] LABS: GLUCOSE 162 MG/DL (70-105)
[2023-03-18 09:31] LABS: CARBON DIOXIDE 17 MMOL/L (21-32)
[2023-03-18 09:32] LABS: BILIRUBIN,TOTAL 0.4 MG/DL (0.1-1.0); FIBRIN DEGRADATION PRODUCTS 0.33 UG/ML (0.00-0.49)
[2023-03-18 09:33] LABS: ALKALINE PHOSPHATASE 93 U/L (40-136)
[2023-03-18 09:34] LABS: CREATININE SERUM 0.89 MG/DL (0.60-1.30); GFR ESTIMATED 86
[2023-03-18 09:35] LABS: BUN/CREATININE RATIO 25
[2023-03-18 09:37] LABS: ALANINE AMINOTRANSFERASE 16 U/L (0-55); CREATINE KINASE 98 U/L (29-168); MAGNESIUM 2.3 MG/DL (1.6-2.4)
[2023-03-18 09:44] LABS: CREATINE KINASE MB 1.4 NG/ML (<6.6)
--- NOTE | 2023-03-18 09:46 | Diagnostic Imaging Report ---
CLINICAL INDICATION: Patient with chest pressure x1 week. EXAM: Portable chest x-ray upright view. COMPARISON: Chest x-ray dated 01/03/2021. FINDINGS: Lungs/pleura: Lungs are clear. There is no pneumothorax. There is no pleural effusion. Mediastinum: Unremarkable. Pulmonary vasculature: Unremarkable. Heart: Unremarkable. Bones/extrathoracic soft tissue: Unremarkable. IMPRESSION: There is no radiographic evidence of acute cardiopulmonary process. Dictated by: Dictated on workstation # [id number]
[2023-03-18 09:49] LABS: POTASSIUM 4.8 MMOL/L (3.6-5.0)
[2023-03-18] MEDS ORDERED: KETOROLAC INJ 30 MG/ML VIAL IVP ONE (10:00)
[2023-03-18 10:01] LABS: LIPASE 47 U/L (8-78)
[2023-03-18] MEDS ORDERED: IOHEXOL 350 MG/ML 150 ML (OMNIPAQUE 350) VIAL IV ONE (10:30)
[2023-03-18] MEDS ORDERED: NS 100 ML (IVPB) BAG IV ONE (10:30)
--- NOTE | 2023-03-18 10:56 | Diagnostic Imaging Report ---
INDICATION: Chest pain and shortness of air. TECHNIQUE: After intravenous administration of contrast, thin section axial CT angiography of the chest was performed. 3D MIP reconstructions were made. All CT scans use one or more of the following dose optimizing techniques: automated exposure control, MA and/or KvP adjustment based on a patient size and exam type, or iterative reconstruction. No prior studies are available for comparison. Evaluation of the pulmonary arterial system is without evidence of thromboembolism. No definite filling defects are seen within central, lobar or segmental branches. The thoracic aorta is normal caliber. There is no dissection. No pericardial or pleural fluid is identified. No pulmonary infiltrates, nodules or masses are detected. Upper abdomen is unremarkable. IMPRESSION: Unremarkable CT angiogram of the chest. There is no evidence of pulmonary embolus a more acute aortic disease. Dictated by: Dictated on workstation # [id number]
[2023-03-18] MEDS ORDERED: KETO10TA PO (11:08)
== END 2023-03-18 11:22 | disposition home or self-care (01) ==
LOC: EDUNIT# 08:57 → ER 09:00
DX: R07.89 Other chest pain (principal); E11.9 Type 2 diabetes mellitus without complications; G47.33 Obstructive sleep apnea (adult) (pediatric); E66.01 Morbid (severe) obesity due to excess calories; Z99.89 Dependence on other enabling machines and devices; Z68.43 Body mass index [BMI] 50.0-59.9, adult; Z79.4 Long term (current) use of insulin; Z79.84 Long term (current) use of oral hypoglycemic drugs
CPT/HCPCS: 36415; 71045; 71275; 80053; 82150; 82550; 82553; 83690; 83735; 83874; 83880; 84484; 85025; 85379; 85610; 85730; 93005

== ENCOUNTER 2023-06-09 20:09 | Emergency (ER) | payer MEDICAID ==
[~2023-06-09] VITALS: Ht 170.2 cm; Wt 155.7 kg
[~2023-06-09 20:09] MED LIST changes: +KETO10TA PO; -TOPI-241; +TOPI-83
[2023-06-09 20:10] VITALS: BP 186/92
[2023-06-09] MEDS ORDERED: PRD20T PO (20:33)
--- NOTE | 2023-06-09 20:33 | ED Cough/URI ---
General Chief Complaint: Cough/Cold/Flu Symptoms Stated Complaint: SOB|CHEST PAIN|COUGH Source: patient Exam Limitations: no limitations History of Present Illness Date Seen by Provider: Jun 09, 2023 Time Seen by Provider: 20:15 Initial Comments 38-year-old female presents complaining of cough x 2-week and concern for pneumonia. Patient is diabetic. Patient has been on amoxicillin for 10 days just finished within the last couple of days for strep, she finished Macrobid recently for UTI, and she is currently on Bactrim for a skin infection of her toe. Allergies and Home Medications Allergies Coded Allergies: levofloxacin (Unverified Allergy, Unknown, 12/22/19) metronidazole (Verified Allergy, Unknown, 01/03/21) haloperidol (Unverified Adverse Reaction, Unknown, 12/22/19) Patient Home Medication List Home Medication List Reviewed: Yes Escitalopram Oxalate (Escitalopram Oxalate) 20 Mg Tablet, (Reported) Entered as Reported by: LI BARLOW on 12/22/191745 Hydrocodone/Acetaminophen (Hydrocodone-Acetamin 5-325 mg) 1 Each Tablet, 1 TAB PO Q6H PRN for PAIN-SEVERE (8-10) Prescribed by: DOV DOE on 09/06/202020 Ketorolac Tromethamine (Ketorolac Tromethamine) 10 Mg Tablet, 10 MG PO Q6H Prescribed by: JOHNY JIMENES on 03/18/23 1108 Naproxen Sodium (Naproxen Sodium) 550 Mg Tablet, 550 MG PO BID PRN for pelvic pain Prescribed by: DOV DOE on 09/06/202020 Omeprazole (Omeprazole) 20 Mg Capsule., (Reported) Entered as Reported by: LI BARLOW on 12/22/191745 Pramipexole Di-HCl (Pramipexole Dihydrochloride) 0.25 Mg Tablet, (Reported) Entered as Reported by: LI BARLOW on 12/22/191745 Ropinirole HCl (Ropinirole HCl) 2 Mg Tablet, (Reported) Entered as Reported by: LI BARLOW on 12/22/191745 Topiramate (Topiramate) 50 Mg Tablet, (Reported) Entered as Reported by: LI BARLOW on 12/22/191745 [Bupropion] , (Reported) Entered as Reported by: LI BARLOW on 12/22/191745 [Cinnamon] , (Reported) Entered as Reported by: LI BARLOW on 12/22/191745 [Claritin] , (Reported) Entered as Reported by: LI BARLOW on 12/22/191745 [Probiotic] , (Reported) Entered as Reported by: LI BARLOW on 12/22/191745 Review of Systems Review of Systems Constitutional: see HPI (All other systems negative except as documented in HPI.) Past Wgzidcl-Cqknbn-Rmrhss Hx Immunizations Up To Date Tetanus Booster (TDap): Unknown Seasonal Allergies Seasonal Allergies: No Past Medical History Surgeries: Yes (14 LB Ovarian Cyst REMOVED, a couple back procedures) Adenoidectomy, Section, Gallbladder, Hysterectomy, Tonsillectomy Respiratory: Yes (ANNA with CPAP) Sleep Apnea Currently Using CPAP: Yes Cardiac: No Neurological: Yes (RLS) Headaches /Migraines Genitourinary: No Gastrointestinal: Yes Gastroesophageal Reflux Musculoskeletal: Yes (reports ankylosing spondylitis) Scoliosis, Chronic Back Pain Endocrine: Yes ("pre-diabetes", Morbid obesity) HEENT: No Cancer: No Psychosocial: Yes (December 2018-Overdose SI-pysch inpt) Anxiety, Suicide Attempts, Depression Integumentary: No Blood Disorders: No Physical Exam Capillary Refill : Height: '" Weight: lbs. oz. kg; 51.00 BMI Method: General Appearance: WD/WN, no apparent distress Eyes: Right Eye Normal Inspection, Right Eye PERRL, Right Eye EOMI, Right Eye Abnormal EOM; Bilateral Eye Normal Inspection, Bilateral Eye PERRL, Bilateral Eye EOMI HEENT: PERRL/EOMI, normal ENT inspection, TMs normal, pharynx normal Neck: non-tender, full range of motion, supple, normal inspection, carotid bru it Respiratory: chest non-tender, lungs clear, normal breath sounds, no respiratory distress, no accessory muscle use, respiratory distress Cardiovascular: normal peripheral pulses, regular rate, rhythm, no edema, no gallop, no JVD, no murmur Gastrointestinal: normal bowel sounds, non tender, soft, no organomegaly, no pulsatile mass Genital/Rectal: normal genital exam; No normal genital exam Extremities: normal range of motion, non-tender, normal inspection, no pedal edema, no calf tenderness, normal capillary refill, pelvis stable 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 Lungs are clear to auscultation. She is currently on Bactrim which will cover for pneumonia. Will start low-dose prednisone. Patient counseled on the fact that this will raise her blood glucose slightly. She declines cough medication Critical Care Note Critical Care Start Time: 20:32 Departure Impression Primary Impression: Bronchitis Disposition: 01 HOME, SELF-CARE Condition: Stable Departure-Patient Inst. Referrals: SHALINI HOOK APRN (PCP/Family) Primary Care Physician Patient Instructions: Acute Bronchitis, Adult (DC) Scripts Prednisone (Prednisone) 20 Mg Tab 20 MG PO DAILY for 5 Days, #5 TAB 0 Refills Prov: BRII SALEEM DO 06/09/23 BRII SALEEM DO Jun 09, 2023 20:33
== END 2023-06-09 20:57 | disposition home or self-care (01) ==
LOC: EDUNIT# 20:09 → ER FS 20:11
DX: J40 Bronchitis, not specified as acute or chronic (principal); J18.9 Pneumonia, unspecified organism; L08.9 Local infection of the skin and subcutaneous tissue, unspecified; G47.33 Obstructive sleep apnea (adult) (pediatric); E66.01 Morbid (severe) obesity due to excess calories; Z68.43 Body mass index [BMI] 50.0-59.9, adult; Z88.1 Allergy status to other antibiotic agents
CPT/HCPCS: 99285